=== PATIENT | male | born 1930 | race Two or more races ===

== ENCOUNTER → 2017-04-05 | Outpatient (CLI) | payer MEDICARE, MEDICAID ==
[~2017-04-05] MED LIST: ASP81EC PO; FOLI1TAB51 PO; LEVO50TA7 PO; LOSA100T22 PO; OMEG1CAP10 PO; PANC24002 PO; PRAV20TA3 PO
[2017-04-05 12:54] LABS: Basophils # (auto) 0 uL; Basophils % (auto) 0.3 % (0.0-2.0); CONDITION Y; Eosinophils # (auto) 0.1 uL; Eosinophils % (auto) 1.3 % (0.0-7.0); Hemoglobin 12.5 g/dL (13.5-17.5); Lymphocytes # (auto) 1.1 uL; Lymphocytes % (auto) 20.8 % (10.0-50.0); Mean Corpuscular Hemoglobin 30.6 pg (28.0-32.0); Mean Corpuscular Hgb Conc. 33.8 g/dL (32.0-36.0); Mean Corpuscular Volume 90.6 fL (80.0-100.0); Mean Platelet Volume 8.7 fL (7.4-10.4); Monocytes # (auto) 0.3 uL; Monocytes % (auto) 6.8 % (0.0-12.0); Neutrophils # (auto) 3.6 uL; Neutrophils % (auto) 70.8 % (37.0-80.0); Platelet Count (auto) 146 10^3/uL (140-450); Red Cell Distribution Width 14.9 % (11.6-16.0); White Blood Cell 5.1 10^3/uL (4.4-10.8)
[2017-04-05 13:15] LABS: Urine Bilirubin Negative (Negative); Urine Blood Negative /uL (Negative); Urine Color Yellow (Yellow); Urine Glucose Normal (Normal); Urine Ketone Negative (Negative); Urine Nitrite Negative (Negative); Urine Urobilinogen Normal (Negative)
[2017-04-05 13:22] LABS: BUN/Creatinine Ratio 19.9; Bilirubin, Direct 0.1 mg/dL (0-0.2); Bilirubin, Total 0.4 mg/dL (0.2-1.0)
== END | disposition home or self-care (01) ==
LOC: LAB 08:47
PROVIDERS: ATTEND Internal Medicine Cardiovascular Disease
DX: I10 Essential (primary) hypertension (principal); E78.00 Pure hypercholesterolemia, unspecified; K74.1 Hepatic sclerosis; E11.9 Type 2 diabetes mellitus without complications; R97.20 Elevated prostate specific antigen [PSA]; R53.81 Other malaise; E03.9 Hypothyroidism, unspecified; D64.9 Anemia, unspecified; E55.9 Vitamin D deficiency, unspecified; N39.0 Urinary tract infection, site not specified
CPT/HCPCS: 36415; 80048; 80061; 80076; 81003; 82306; 83036; 84153; 84403; 84443; 85025

== ENCOUNTER 2017-07-28 15:26 | Observation (INO) | payer MEDICARE, MEDICAID ==
[~2017-07-28] VITALS: Ht 170.2 cm; Wt 79.4 kg
[~2017-07-28 15:26] MED LIST changes: +AMLO10TA2 PO; +CLOP75TA41 PO; +FEBU80TA PO; +FOLI1TAB6 PO
[2017-07-28] MEDS ORDERED: ASPirin 81 mg TAB PO ONE (16:00)
[2017-07-28 16:49] LABS: Basophils # (auto) 0 uL; Basophils % (auto) 0.4 % (0.0-2.0); Eosinophils # (auto) 0.1 uL; Eosinophils % (auto) 0.9 % (0.0-7.0); Hematocrit 39.4 % (41.0-53.0); Hemoglobin 13.7 g/dL (13.5-17.5); Lymphocytes # (auto) 1.4 uL; Lymphocytes % (auto) 25.7 % (10.0-50.0); Mean Corpuscular Hemoglobin 32.1 pg (28.0-32.0); Mean Corpuscular Hgb Conc. 34.8 g/dL (32.0-36.0); Mean Corpuscular Volume 92.3 fL (80.0-100.0); Mean Platelet Volume 8.1 fL (6.9-10.8); Monocytes # (auto) 0.4 uL; Monocytes % (auto) 6.9 % (0.0-12.0); Neutrophils # (auto) 3.7 uL; Neutrophils % (auto) 66.1 % (37.0-80.0); Nucleated Red Blood Cells % 0.1 %; Platelet Count (auto) 133 10^3/uL (140-450); Red Cell Distribution Width 14.1 % (11.8-14.3); White Blood Cell 5.6 10^3/uL (4.4-10.8)
[2017-07-28 17:04] LABS: INR 0.94 (0.9-1.15); Partial Thromboplastin Time 25.3 sec (22.64-33.71); Prothrombin Time 10.2 sec (9.37-12.3)
[2017-07-28 17:13] LABS: Albumin 4.2 g/dL (3.4-5.0); BUN/Creatinine Ratio 17.8; Bilirubin, Total 0.5 mg/dL (0.2-1.0); Calcium 9.1 mg/dL (8.5-10.1); Magnesium 2.3 mg/dL (1.6-2.6); Potassium 3.5 mmol/L (3.5-5.1); Total Protein 8.4 g/dL (6.4-8.2)
[2017-07-28 17:18] LABS: B-Type Natriuretic Peptide 66.04 pg/mL (0-100)
[2017-07-28 17:46] LABS: Temperature: 23.1 C (20.0-25.0)
[2017-07-28] MEDS ORDERED: ACETAMINOPHEN 325 MG TAB PO PRN (21:30)
[2017-07-28] MEDS ORDERED: TEMAZEPAM 15 MG CAP PO PRN (21:30)
[2017-07-28] MEDS ORDERED: DOCUSATE SOD 100 MG CAP PO PRN (21:30)
[2017-07-28] MEDS ORDERED: MORPHINE SULF INJ 2 MG/ML SYRINGE 1ML IV PRN (21:30)
[2017-07-28] MEDS ORDERED: ONDANSETRON HCL 4 MG/2 ML VIAL IV PRN (21:30)
[2017-07-28] MEDS ORDERED: NITROGLYCERIN 0.4 MG SL TAB SL PRN (21:30)
[2017-07-28] MEDS ORDERED: HYDROcodone-ACET 5/325MG TAB PO PRN (21:30)
[2017-07-28 21:58] VITALS: BP 135/74
[2017-07-28] MEDS ORDERED: PRAVASTATIN SODIUM 20 MG TAB PO SCH (22:00)
[2017-07-28] MEDS ORDERED: FAMOTIDINE 20 MG TAB PO SCH (22:00)
[2017-07-29] MEDS ORDERED: LEVOTHYROXINE SODIUM 50 MCG TAB PO SCH (07:00)
[2017-07-29] MEDS ORDERED: LOSARTAN POTASSIUM 50 MG TAB PO SCH (10:00)
[2017-07-29] MEDS ORDERED: CLOPIDOGREL BISULFATE 75 MG TAB PO SCH (10:00)
[2017-07-29] MEDS ORDERED: amLODIPine BESYLATE 5 MG TAB PO SCH (10:00)
[2017-07-29] MEDS ORDERED: ASPirin 81 mg TAB PO SCH (10:00)
[2017-07-29] MEDS ORDERED: ENOXAPARIN SOD 30 MG/0.3 ML SYRINGE SC SCH (10:00)
== END 2017-07-28 21:59 | disposition home or self-care (01) | DRG 313 ==
LOC: ER 15:26 → OVERFLOW 15:53 → ER 21:59
PROVIDERS: ADMIT Family Medicine; ATTEND Family Medicine
DX: R07.2 Precordial pain (principal); I25.110 Atherosclerotic heart disease of native coronary artery with unstable angina pectoris; D69.6 Thrombocytopenia, unspecified; N18.3 Chronic kidney disease, stage 3 (moderate); I12.9 Hypertensive chronic kidney disease with stage 1 through stage 4 chronic kidney disease, or unspecified chronic kidney disease; E03.9 Hypothyroidism, unspecified; E78.5 Hyperlipidemia, unspecified; Z82.49 Family history of ischemic heart disease and other diseases of the circulatory system; Z95.1 Presence of aortocoronary bypass graft
CPT/HCPCS: 36415; 71010; 80053; 83735; 83880; 84443; 84484; 85025; 85610; 85730; 93005; 99285; G0378